=== PATIENT | male | born 1975 | race African-American/Black ===

== ENCOUNTER 2021-12-14 23:13 | Emergency (ER) | payer OTHER ==
[~2021-12-14 23:13] MED LIST: HYDROCODON-ACE1 EAC4 PO; MEDROL 4MG DOSEP4 MG PO; NORCO 5-325 TA1 EACH PO; ROBAXIN750 MG PO
[2021-12-14 23:39] LABS: BASOPHIL 0.8 % (0-2); EOSINOPHIL 3.8 % (0-5); HCT 44.8 % (42.0-52.0); HGB 15.3 g/dl (13.2-18.0); LYMPHOCYTE 36.2 % (15-48); MCH 28.7 pg (25.0-31.0); MCHC 34.2 g/dL (32.0-36.0); MCV 84.1 fL (78.0-100.0); MONOCYTE 8.8 % (0-12); MPV 11.2 fL (6.0-9.5); NEUTROPHIL 50.2 % (41-80); NRBC 0; PLT 220 K/uL (150-400); RBC 5.33 M/uL (4.70-6.00); RDW 11.5 % (11.5-14.0); WBC 5.3 K/uL (4.0-10.5)
[2021-12-15 00:01] LABS: INR 0.99 (0.9-1.2); PROTHROMBIN TIME 12.8 SECONDS (11.9-13.9)
[2021-12-15 00:02] LABS: PTT 38.4 SECONDS (24.9-34.6)
[2021-12-15 00:18] LABS: ALBUMIN 3.8 g/dL (3.4-5.0); BILIRUBIN - TOTAL 0.5 mg/dL (0.2-1.0); BUN/CREAT RATIO (CALC) 13.4 RATIO; CREATININE 1.19 mg/dL (0.67-1.17); GLOBULIN (CALCULATION) 3.8 g/dL; POTASSIUM 3.6 mmol/L (3.5-5.1); TOTAL PROTEIN 7.6 g/dL (6.4-8.2)
== END 2021-12-15 01:50 | disposition home or self-care (01) ==
LOC: FER 23:13
PROVIDERS: Emergency Medicine
DX: R07.89 Other chest pain (principal); I10 Essential (primary) hypertension; Z88.0 Allergy status to penicillin; Z28.310 Unvaccinated for COVID-19
CPT/HCPCS: 36415; 71045; 80053; 84484; 85025; 85610; 85730; 93005